=== PATIENT | female | born 2000 | race Two or more races ===

== ENCOUNTER 2023-03-21 23:41 | Emergency (ER) | payer SELFPAY ==
[~2023-03-21] VITALS: Ht 162.6 cm; Wt 70.9 kg
[2023-03-22] MEDS ORDERED: PERTUSS(ACELL),DIPH,TET VAC/PF 0.5 ML SYRINGE IM. ONE (01:45)
[2023-03-22] MEDS ORDERED: LIDOCAINE 1% 10 ML VIAL SQ ONE (01:45)
[2023-03-22] MEDS ORDERED: AMOX TR/POT CLAV 875 MG/125 MG TABLET PO ONE (01:45)
[2023-03-22] MEDS ORDERED: IBUP-1492 PO (02:20)
[2023-03-22] MEDS ORDERED: AMOX1TAB16 PO (02:20)
[2023-03-22 02:59] VITALS: BP 127/68; PULSE 71; RESP 14; TEMP 98.3
== END 2023-03-22 03:05 | disposition home or self-care (01) ==
LOC: EMS 23:42
DX: S51.812A Laceration without foreign body of left forearm, initial encounter (principal); W54.0XXA Bitten by dog, initial encounter; Y93.89 Activity, other specified; Y92.89 Other specified places as the place of occurrence of the external cause; Y99.8 Other external cause status
CPT/HCPCS: 12004; 90471; 90715; 99284

== ENCOUNTER 2023-04-05 14:32 | Emergency (ER) | payer MEDICAID ==
[~2023-04-05] VITALS: Ht 162.6 cm; Wt 63.6 kg
[~2023-04-05 14:32] MED LIST: AMOX1TAB16 PO; IBUP-1492 PO
[2023-04-05 14:35] VITALS: BP 117/77; PULSE 83; RESP 16; TEMP 98.3
== END 2023-04-05 15:15 | disposition home or self-care (01) ==
LOC: EMS 14:32
DX: S51.852D Open bite of left forearm, subsequent encounter (principal); F12.90 Cannabis use, unspecified, uncomplicated; Z48.02 Encounter for removal of sutures; W54.0XXD Bitten by dog, subsequent encounter
CPT/HCPCS: 99281; Z7502